=== PATIENT | female | born 1955 | race Hispanic/Latino ===

== ENCOUNTER 2017-05-04 16:38 | Inpatient (IN) | payer OTHER ==
[~2017-05-04] VITALS: Ht 162.6 cm; Wt 87.3 kg
[2017-05-04 17:56] LABS: BASOPHILS % (AUTO) 0.6 % (0.0-5.0); EOSINOPHILS % (AUTO) 0.5 % (0.0-8.0); HEMATOCRIT 37.2 % (36-48); LYMPHOCYTES % (AUTO) 17.5 % (21.0-51.0); MEAN CORPUSCULAR HEMOGLOBIN 25.2 pg (27.0-33.0); MEAN CORPUSCULAR HGB CONC 33.2 g/dL (32.0-36.0); MEAN CORPUSCULAR VOLUME 75.8 fL (79-99); MONOCYTES % (AUTO) 11.1 % (3.0-13.0); NEUTROPHILS % (AUTO) 70.3 % (40.0-77.0); NUCLEATED RED BLOOD CELLS 0.1 % (0.0-0.19); PLATELET COUNT (AUTO) 417 K/uL (130-400); RED CELL DISTRIBUTION WIDTH 15.8 % (11.0-15.5); WHITE BLOOD COUNT (AUTO) 6.8 K/uL (4.8-10.8)
[2017-05-04] MEDS ORDERED: ONDANSETRON HCL 4 MG/2 ML VIAL ONE (17:56)
[2017-05-04 18:34] LABS: ALBUMIN 3.1 g/dL (3.5-5.0); BILIRUBIN,TOTAL 0.6 mg/dL (0.2-1.0); CREATININE 1.6 mg/dL (0.5-1.5); POTASSIUM 3.2 mmol/L (3.5-5.1); TOTAL PROTEIN, SERUM 8.6 g/dL (6.0-8.3)
[2017-05-04] MEDS ORDERED: DEXAMETHASONE SOD PHOSPHATE 10MG/ML 1ML VIAL ONE (19:02)
[2017-05-04] MEDS ORDERED: IPRATROPIUM/ALBUTEROL SULFATE 3 ML SOLUTION IH ONE ×2 (19:08→19:42)
[2017-05-04 19:35] LABS: ABG BASE EXCESS -4.6 mmol/L (-2.0-3.0); ABG HCO3 20.1 mmol/L (21.0-28.0); ABG OXYGEN SATURATION 94.2 % (95.0-99.0); ABG PCO2 36 mmHg (32-45)
[2017-05-04 20:52] LABS: ACETONE,BLOOD NEGATIVE (NEGATIVE)
[2017-05-04 20:57] LABS: CREATINE KINASE MB < 0.5 ng/mL (0.5-3.6); CREATINE KINASE, TOTAL 28 U/L (21-232)
[2017-05-04] MEDS ORDERED: CEFTRIAXONE SODIUM 1 GM ONE (21:14)
[2017-05-04] MEDS ORDERED: METHYLPREDNISOLONE SOD SUCC 125MG/2ML VIAL ONE (23:53)
[2017-05-04] MEDS ORDERED: AZITHROMYCIN 500MG+NS 250ML 250 ML IV ONE (23:53)
[2017-05-05] MEDS ORDERED: HYDRALAZINE HCL 20 MG/ML VIAL IV PRN (00:45)
[2017-05-05] MEDS ORDERED: ONDANSETRON HCL 4 MG/2 ML VIAL IVP PRN (00:45)
[2017-05-05] MEDS ORDERED: ACETAMINOPHEN 325 MG TAB PO PRN (00:45)
[2017-05-05] MEDS ORDERED: DEXTROSE 50%-WATER 50 ML DISP.SYRIN IV PRN (00:45)
[2017-05-05] MEDS ORDERED: POTASSIUM CHLORIDE 10% ELIXIR 20 MEQ/15 ML UDCUP PO PRN (00:45)
[2017-05-05] MEDS ORDERED: GLUCAGON 1MG KIT 1 MG ML IM PRN (00:45)
[2017-05-05] MEDS ORDERED: KETOROLAC TROMETHAMINE 15MG/ML IV PRN (00:45)
[2017-05-05] MEDS ORDERED: CEFTRIAXONE 1GM/D5W 50ML 50 ML IV SCH (00:45)
[2017-05-05] MEDS ORDERED: GUAIFENESIN-DM 200/20 MG 10 ML PO PRN (00:45)
[2017-05-05] MEDS ORDERED: IPRATROPIUM/ALBUTEROL SULFATE 3 ML SOLUTION IH ONE ×5 (03:10→18:04)
[2017-05-05] MEDS: IPRATROPIUM/ALBUTEROL SULFATE 3 ML SOLUTION IH SCH ×5 (06:00→21:23)
[2017-05-05 06:48] LABS: BASOPHILS % (AUTO) 0.2 % (0.0-5.0); HEMATOCRIT 34.5 % (36-48); LYMPHOCYTES % (AUTO) 11.8 % (21.0-51.0); MEAN CORPUSCULAR HEMOGLOBIN 25.2 pg (27.0-33.0); MEAN CORPUSCULAR HGB CONC 32.4 g/dL (32.0-36.0); MEAN CORPUSCULAR VOLUME 77.7 fL (79-99); MONOCYTES % (AUTO) 1.8 % (3.0-13.0); NEUTROPHILS % (AUTO) 86.2 % (40.0-77.0); PLATELET COUNT (AUTO) 374 K/uL (130-400); RED BLOOD CELL COUNT(AUTO) 4.43 MIL/uL (4.00-5.50); RED CELL DISTRIBUTION WIDTH 15.8 % (11.0-15.5); WHITE BLOOD COUNT (AUTO) 6.9 K/uL (4.8-10.8)
[2017-05-05 07:04] LABS: ALBUMIN 2.7 g/dL (3.5-5.0); BILIRUBIN,TOTAL 0.3 mg/dL (0.2-1.0); CREATININE 1.8 mg/dL (0.5-1.5); POTASSIUM 3.4 mmol/L (3.5-5.1); TOTAL PROTEIN, SERUM 7.6 g/dL (6.0-8.3)
[2017-05-05 07:24] LABS: HEMOGLOBIN A1C 13.5 % (4.0-6.0)
[2017-05-05] MEDS ORDERED: INSULIN HUMULIN R 100 UNIT/ML 3ML ONE ×5 (07:28→16:39)
[2017-05-05] MEDS ORDERED: POTASSIUM CHLORIDE 20 MEQ ERTAB PO ONE ×2 (08:01→09:28)
[2017-05-05] MEDS ORDERED: SODIUM CHLORIDE 0.9% 1000ML 1,000 ML IV ONE (08:05)
[2017-05-05] MEDS ORDERED: METHYLPREDNISOLONE SOD SUCC 125MG/2ML VIAL IVP SCH (09:00)
[2017-05-05] MEDS: FAMOTIDINE 20MG TAB 20 MG TAB PO SCH ×2 (09:00→21:00)
[2017-05-05] MEDS ORDERED: METHYLPREDNISOLONE SOD SUCC 40MG/ML 1ML ONE (09:28)
[2017-05-05] MEDS ORDERED: AZITHROMYCIN 500MG+NS 250ML 250 ML IV ONE (09:28)
[2017-05-05] MEDS ORDERED: HIGH BLOOD PRESSURE (11:28)
[2017-05-05] MEDS ORDERED: METFORMIN (11:28)
[2017-05-05] MEDS: INSULIN HUMULIN R 100 UNIT/ML 3ML SQ SCH (11:30)
[2017-05-05] MEDS ORDERED: CEFTRIAXONE SODIUM 1 GM ONE (12:09)
[2017-05-05] MEDS: GUAIFENESIN/DEXTROMETHORPHAN 1 EACH TAB.SR.12H PO SCH ×2 (12:15→21:00)
[2017-05-05] MEDS ORDERED: ACETAMINOPHEN-CODEINE 300/30MG TAB PO PRN ×2 (12:15)
[2017-05-05] MEDS ORDERED: MORPHINE SULFATE 2 MG/ML 1ML SYG IVP PRN (12:15)
[2017-05-05] MEDS: FLUCONAZOLE 100 MG TAB PO SCH (14:00)
[2017-05-05] MEDS ORDERED: SODIUM CHLORIDE 0.9% 100 ML IV ONE (16:37)
[2017-05-05] MEDS ORDERED: ACETAMINOPHEN 325 MG TAB ONE (18:38)
[2017-05-05] MEDS ORDERED: FAMOTIDINE 20MG TAB 20 MG TAB PO ONE (21:26)
[2017-05-05] MEDS ORDERED: FAMOTIDINE/PF 20 MG/2 ML VIAL IV ONE (22:30)
[2017-05-06] VITALS (7 sets, daily range): BP systolic 116–139; BP diastolic 61–76
[2017-05-06 01:34] LABS: APPEARANCE,URINE Clear (CLEAR); BILIRUBIN,URINE Negative (NEGATIVE); COLOR,URINE Yellow (YELLOW); GLUCOSE, URINE (UA) 500 mg/dL (NEGATIVE); KETONES,URINE Negative (NEGATIVE); LEUKOCYTE ESTERASE ,URINE Large (NEGATIVE); NITRATE,URINE Negative (NEGATIVE); OCCULT BLOOD,URINE Negative (NEGATIVE); PH,URINE 6.5 (5.0-8.0); PROTEIN,URINE Negative (NEGATIVE); UROBILINOGEN,URINE 0.2 mg/dL (0.2-1.0)
[2017-05-06 01:39] LABS: BACTERIA,URINE Moderate /HPF (None Seen); MUCUS,URINE Few LPF (None Seen); RBC,URINE 0-1 /HPF (0-1); SQUAMOUS EPITHELIAL CELL,UR Moderate /LPF (0-2); YEAST,URINE BUDDING Moderate /HPF (None Seen)
[2017-05-06] MEDS ORDERED: FLUCONAZOLE 100 MG TAB ONE (01:41)
[2017-05-06] MEDS ORDERED: METOCLOPRAMIDE 10 MG/2 ML VIAL ONE (01:42)
[2017-05-06] MEDS: IPRATROPIUM/ALBUTEROL SULFATE 3 ML SOLUTION IH SCH ×4 (01:42→18:21)
[2017-05-06] MEDS: SODIUM CHLORIDE 0.9% 1000ML 1,000 ML IV SCH ×2 (03:44→06:27)
[2017-05-06 06:13] LABS: MEAN CORPUSCULAR HEMOGLOBIN 26.5 pg (27.0-33.0); MEAN CORPUSCULAR HGB CONC 35.3 g/dL (32.0-36.0); MEAN CORPUSCULAR VOLUME 75.1 fL (79-99); PLATELET COUNT (AUTO) 310 K/uL (130-400); RED BLOOD CELL COUNT(AUTO) 3.59 MIL/uL (4.00-5.50); RED CELL DISTRIBUTION WIDTH 15.9 % (11.0-15.5); WHITE BLOOD COUNT (AUTO) 12.3 K/uL (4.8-10.8)
[2017-05-06] MEDS ORDERED: NITROGLYCERIN 0.4 MG SL TAB SL PRN (06:15)
[2017-05-06] MEDS ORDERED: LACTULOSE 20 GM/30 ML UDCUP PO PRN (06:15)
[2017-05-06] MEDS: METOCLOPRAMIDE 10 MG/2 ML VIAL IVP SCH ×3 (06:15→17:00)
[2017-05-06] MEDS: INSULIN HUMULIN R 100 UNIT/ML 3ML SQ SCH ×4 (06:19→21:00)
[2017-05-06 06:22] LABS: CREATININE 1.2 mg/dL (0.5-1.5)
[2017-05-06 06:26] LABS: POTASSIUM 2.8 mmol/L (3.5-5.1)
[2017-05-06] MEDS: POTASSIUM CHLORIDE 20MEQ/100ML 100 ML IV PRN ×2 (06:38→09:17)
[2017-05-06] MEDS: LIDOCAINE HCL-MPF 1% 2ML VIAL IVP PRN ×2 (06:39→09:17)
[2017-05-06] MEDS: POTASSIUM CHLORIDE 20 MEQ ERTAB PO PRN ×2 (06:40→09:15)
[2017-05-06] MEDS: GUAIFENESIN/DEXTROMETHORPHAN 1 EACH TAB.SR.12H PO SCH ×2 (09:15→19:49)
[2017-05-06] MEDS: FAMOTIDINE 20MG TAB 20 MG TAB PO SCH ×2 (09:15→19:49)
[2017-05-06] MEDS: FLUCONAZOLE 100 MG TAB PO SCH (09:16)
[2017-05-06] MEDS: AZITHROMYCIN 500MG+NS 250ML 250 ML IV SCH (09:16)
[2017-05-06] MEDS: ENOXAPARIN SODIUM 30 MG/0.3 ML SQ SCH (09:19)
[2017-05-06] MEDS: INSULIN GLARGINE 100 UNITS/ML 10 ML VIAL SQ SCH ×2 (09:22→21:05)
[2017-05-06] MEDS: CEFTRIAXONE SODIUM 1 GM IVP SCH (12:03)
[2017-05-07] MEDS: IPRATROPIUM/ALBUTEROL SULFATE 3 ML SOLUTION IH SCH ×3 (00:15→11:02)
[2017-05-07 03:53] VITALS: BP 116/65
[2017-05-07 04:36] LABS: HEMATOCRIT 30.5 % (36-48); MEAN CORPUSCULAR HEMOGLOBIN 25.5 pg (27.0-33.0); MEAN CORPUSCULAR HGB CONC 33.5 g/dL (32.0-36.0); MEAN CORPUSCULAR VOLUME 76.2 fL (79-99); PLATELET COUNT (AUTO) 278 K/uL (130-400); WHITE BLOOD COUNT (AUTO) 11.4 K/uL (4.8-10.8)
[2017-05-07 04:55] LABS: MAGNESIUM 1.4 mg/dL (1.80-2.40); PHOSPHORUS 2.4 mg/dL (2.5-4.9); POTASSIUM 3.3 mmol/L (3.5-5.1)
[2017-05-07] MEDS: POTASSIUM CHLORIDE 20 MEQ ERTAB PO PRN ×3 (05:15→09:42)
[2017-05-07] MEDS: INSULIN HUMULIN R 100 UNIT/ML 3ML SQ SCH ×3 (05:54→17:54)
[2017-05-07] MEDS: METOCLOPRAMIDE 10 MG/2 ML VIAL IVP SCH ×3 (05:57→17:46)
[2017-05-07 07:00] VITALS: BP 137/92
[2017-05-07] MEDS: INSULIN GLARGINE 100 UNITS/ML 10 ML VIAL SQ SCH (07:30)
[2017-05-07] MEDS ORDERED: FLUC100T8 PO (07:41)
[2017-05-07] MEDS ORDERED: LEVO500T2 PO (07:41)
[2017-05-07] MEDS ORDERED: ALBUHFA IH (07:41)
[2017-05-07] MEDS ORDERED: INSLAN SQ (07:41)
[2017-05-07] MEDS ORDERED: BENZ-39 PO (07:41)
[2017-05-07] MEDS ORDERED: MAGNESIUM 2GM PREMIX 50ML 50 ML IV SCH (07:45)
[2017-05-07] MEDS: ENOXAPARIN SODIUM 30 MG/0.3 ML SQ SCH (09:39)
[2017-05-07] MEDS: AZITHROMYCIN 500MG+NS 250ML 250 ML IV SCH (09:40)
[2017-05-07] MEDS: GUAIFENESIN/DEXTROMETHORPHAN 1 EACH TAB.SR.12H PO SCH (09:40)
[2017-05-07] MEDS: FAMOTIDINE 20MG TAB 20 MG TAB PO SCH (09:40)
[2017-05-07] MEDS: FLUCONAZOLE 100 MG TAB PO SCH (09:40)
[2017-05-07 11:08] VITALS: BP 128/79
[2017-05-07] MEDS ORDERED: WATER FOR INJECTION,STERILE 20 ML VIAL ONE (12:33)
[2017-05-07] MEDS: CEFTRIAXONE SODIUM 1 GM IVP SCH (12:39)
[2017-05-07 16:00] VITALS: BP 136/57
== END 2017-05-07 18:37 | disposition home or self-care (01) | DRG 640 ==
LOC: EDH 16:38 → EDHIP 21:42 → 2DH 05-06 03:16
PROVIDERS: ADMIT Internal Medicine; ATTEND Internal Medicine
DX: E87.1 Hypo-osmolality and hyponatremia (principal); J18.9 Pneumonia, unspecified organism; J45.901 Unspecified asthma with (acute) exacerbation; E11.65 Type 2 diabetes mellitus with hyperglycemia; K52.9 Noninfective gastroenteritis and colitis, unspecified; E87.8 Other disorders of electrolyte and fluid balance, not elsewhere classified; R09.02 Hypoxemia; E86.0 Dehydration; E78.5 Hyperlipidemia, unspecified; E87.6 Hypokalemia; I10 Essential (primary) hypertension; Z79.4 Long term (current) use of insulin; Z91.19 Patient's noncompliance with other medical treatment and regimen
CPT/HCPCS: 36415; 36600; 71045; 80048; 80053; 81001; 82009; 82550; 82553; 82803; 82948; 83036; 83605; 83690; 83735; 84100; 84132; 84484; 85025; 85027; 87040; 87804; 93005; 94640; 94664; J0456; J0696; J1100; J1650; J1815; J2405; J2765; J2920; J2930; J3475; J3480; J3490; J7030

== ENCOUNTER 2018-06-13 19:01 | Emergency (ER) | payer OTHER ==
[~2018-06-13 19:01] MED LIST: ALBUHFA IH; BENZ-39 PO; FLUC100T8 PO; INSLAN SQ; LEVO500T2 PO
[2018-06-13 19:50] LABS: APPEARANCE,URINE Clear (CLEAR); BILIRUBIN,URINE Negative (NEGATIVE); COLOR,URINE Yellow (YELLOW); GLUCOSE, URINE (UA) >=1000 mg/dL (NEGATIVE); KETONES,URINE 15 mg/dL (NEGATIVE); LEUKOCYTE ESTERASE ,URINE Negative (NEGATIVE); NITRATE,URINE Negative (NEGATIVE); OCCULT BLOOD,URINE Negative (NEGATIVE); PROTEIN,URINE Negative (NEGATIVE); UROBILINOGEN,URINE 0.2 mg/dL (0.2-1.0)
[2018-06-13 20:05] LABS: BASOPHILS % (AUTO) 0.4 % (0.0-5.0); EOSINOPHILS % (AUTO) 0.3 % (0.0-8.0); HEMATOCRIT 38.8 % (36-48); LYMPHOCYTES % (AUTO) 5.9 % (21.0-51.0); MEAN CORPUSCULAR HEMOGLOBIN 27.7 pg (27.0-33.0); MEAN CORPUSCULAR HGB CONC 33.7 g/dL (32.0-36.0); MEAN CORPUSCULAR VOLUME 82.1 fL (79-99); MONOCYTES % (AUTO) 7.5 % (3.0-13.0); NEUTROPHILS % (AUTO) 85.9 % (40.0-77.0); PLATELET COUNT (AUTO) 197 K/uL (130-400); RED BLOOD CELL COUNT(AUTO) 4.73 MIL/uL (4.00-5.50); RED CELL DISTRIBUTION WIDTH 16.1 % (11.0-15.5)
[2018-06-13 20:23] LABS: CREATININE 1.2 mg/dL (0.5-1.5); POTASSIUM 4.1 mmol/L (3.5-5.1)
[2018-06-13 20:24] LABS: INR 0.9 (0.85-1.15); PARTIAL THROMBOPLASTIN TIME 25.7 SEC (26.3-35.5); PROTHROMBIN TIME 9.5 SEC (9.6-11.6)
[2018-06-13 20:29] LABS: ALBUMIN 3.7 g/dL (3.5-5.0); BILIRUBIN,TOTAL 0.5 mg/dL (0.2-1.0)
[2018-06-13] MEDS ORDERED: CEFTRIAXONE SODIUM 1 GM ONE (20:36)
[2018-06-13] MEDS ORDERED: AZITHROMYCIN 250 MG TABLET PO ONE (20:37)
== END 2018-06-13 22:31 | disposition home or self-care (01) ==
LOC: EDH 19:01
DX: E86.0 Dehydration (principal); J84.114 Acute interstitial pneumonitis; E11.9 Type 2 diabetes mellitus without complications; I10 Essential (primary) hypertension; J45.909 Unspecified asthma, uncomplicated; E78.5 Hyperlipidemia, unspecified; Z98.890 Other specified postprocedural states
CPT/HCPCS: 36415; 71045; 80053; 81003; 82550; 83605; 83690; 84484; 85025; 85610; 85730; 87040 ×2; 87804 ×2; 93005; 96361; 96374; 96375; 99284; J0696

== ENCOUNTER 2019-06-16 18:16 | Emergency (ER) | payer OTHER ==
[~2019-06-16 18:16] MED LIST changes: +AZIT250T9 PO; +OSEL75 PO
[2019-06-16 19:20] LABS: BASOPHILS % (AUTO) 0.1 % (0.0-5.0); EOSINOPHILS % (AUTO) 0.4 % (0.0-8.0); HEMATOCRIT 38.7 % (36-48); LYMPHOCYTES % (AUTO) 5.6 % (21.0-51.0); MEAN CORPUSCULAR HEMOGLOBIN 27.2 pg (27.0-33.0); MEAN CORPUSCULAR HGB CONC 33.1 g/dL (32.0-36.0); MEAN CORPUSCULAR VOLUME 82.3 fL (79-99); MONOCYTES % (AUTO) 5.7 % (3.0-13.0); NEUTROPHILS % (AUTO) 87.9 % (40.0-77.0); PLATELET COUNT (AUTO) 209 K/uL (130-400); RED CELL DISTRIBUTION WIDTH 14.9 % (11.0-15.5); WHITE BLOOD COUNT (AUTO) 7.7 K/uL (4.8-10.8)
[2019-06-16 19:31] LABS: CARBON DIOXIDE 28 mmol/L (21-32); CHLORIDE 98 mmol/L (101-111); CREATININE 1.3 mg/dL (0.5-1.5); GLOMERULAR FILTR. RATE CALC 44 mL/min (>60); GLUCOSE,RANDOM 393 mg/dL (70-105); POTASSIUM 4.2 mmol/L (3.5-5.1); SODIUM SERUM 135 mmol/L (136-145); UREA NITROGEN, BLOOD 19 mg/dL (7-18)
[2019-06-16 19:38] LABS: INR 0.94 (0.85-1.15); PARTIAL THROMBOPLASTIN TIME 23.3 SEC (26.3-35.5); PROTHROMBIN TIME 9.9 SEC (9.6-11.6)
[2019-06-16] MEDS ORDERED: ALBUTEROL SULFATE 0.083% 2.5 MG/3 ML INH IH ONE ×2 (19:39→20:36)
[2019-06-16 19:43] LABS: ALANINE AMINOTRANSFERASE 29 U/L (12-78); ALBUMIN 3.8 g/dL (3.5-5.0); ASPARTATE AMINOTRANSFERASE 26 U/L (10-37); BILIRUBIN,TOTAL 0.4 mg/dL (0.2-1.0); CREATINE KINASE, TOTAL 74 U/L (21-232); MYOGLOBIN 47 ng/mL (10-92); TOTAL PROTEIN, SERUM 8.4 g/dL (6.0-8.3); TROPONIN I < 0.04 ng/mL (0.00-0.06)
[2019-06-16] MEDS ORDERED: METHYLPREDNISOLONE SOD SUCC 40MG/ML 1ML ONE (20:00)
[2019-06-16] MEDS ORDERED: AZITHROMYCIN 500MG+NS 250ML 250 ML IV ONE (20:00)
[2019-06-16] MEDS ORDERED: INSULIN HUMULIN R 100 UNIT/ML 3ML ONE (20:01)
== END 2019-06-16 21:32 | disposition home or self-care (01) ==
LOC: EDH 18:16
DX: J44.9 Chronic obstructive pulmonary disease, unspecified (principal); E11.65 Type 2 diabetes mellitus with hyperglycemia
CPT/HCPCS: 36415; 71045; 80053; 82550; 83605; 83874; 84145; 84484; 85025; 85610; 85730; 87040; 87804 ×2; 93005; 94640 ×2; 96365; 96375; 99285; J0456; J1815; J2920

== ENCOUNTER → 2023-05-09 | Outpatient (CLI) | payer OTHER ==
[~2023-05-09] MED LIST changes: +FLUC100T12 PO; -FLUC100T8 PO
== END | disposition home or self-care (01) ==
LOC: RAH 10:03
PROVIDERS: ATTEND Family Medicine
DX: M48.061 Spinal stenosis, lumbar region without neurogenic claudication (principal); M47.26 Other spondylosis with radiculopathy, lumbar region
CPT/HCPCS: 72148